=== PATIENT | male | born 1970 | race Caucasian/White ===

== ENCOUNTER 2016-10-31 18:05 | Emergency (ER) | payer OTHER ==
[2016-10-31] MEDS ORDERED: POVIDONE IODINE 10 % 15 ML UD TOP ONE (18:09)
[2016-10-31] MEDS ORDERED: LIDOCAINE 1% 10 ML VIAL INJ ONE (18:09)
--- NOTE | 2016-10-31 18:10 | ED.PDOC ---
History of Present Illness - General Chief Complaint: Skin/Abrasion/Tear Stated Complaint: laceration right hand Time Seen by Provider: 10/31/16 18:07 Source: patient - History of Present Illness Initial Comments: Joe Pike 45 y/o male stated accidentally injure-laceration right hand with broken glass. Timing/Duration: just prior to arrival Severity: moderate Location: hands Improving Factors: rest Worsening Factors: movement Associated Symptoms: denies symptoms Allergies/Adverse Reactions: Allergies NO KNOWN ALLERGY Allergy (Verified 10/31/16 18:31) Review of Systems - Review of Systems Constitutional: States: no symptoms reported EENTM: States: no symptoms reported Respiratory: States: no symptoms reported Cardiology: States: no symptoms reported Gastrointestinal/Abdominal: States: no symptoms reported Genitourinary: States: no symptoms reported Musculoskeletal: States: no symptoms reported Skin: States: no symptoms reported Past Medical History (General) - Vaccination History Hx Tetanus, Diphtheria Vaccination: Yes - 1 yr ago - Social History Hx Tobacco Use: No Hx Chewing Tobacco Use: No Family Medical History - Family History Mother Family History: Unknown Physical Exam - Physical Exam General Appearance: Alert, Comfortable, No apparent distress Eyes, Ears, Nose, Throat Exam: PERRL/EOMI, normal ENT inspection Neck: non-tender, full range of motion Cardiovascular/Chest: normal peripheral pulses, regular rate, rhythm, no murmur Respiratory: lungs clear, normal breath sounds Gastrointestinal/Abdominal: normal bowel sounds, non tender, soft, no organomegaly Back Exam: normal inspection Extremity: normal range of motion Skin Exam: other - laceration Skin Problem Location: other - right hand-2 cm laceration Skin Character: other - laceration Progress - Progress Progress: 10/31/16 18:54 Vital Signs - 8 hr 10/31/16 18:16 Temperature 96.9 F L Pulse Rate [ 104 H left brachial] Respiratory 20 Rate Blood Pressure 146/94 [LEFT BRACHIAL] O2 Sat by Pulse 97 Oximetry Procedures - Laceration/Wound Repair Right Hand Wound Length (cm): 2 Wound's Depth, Shape: linear Wound Explored: no foreign body removed Betadine Prep?: Yes Anesthesia: 1% Lidocaine Volume Anesthetic (cc's): 7 Wound Repaired With: sutures Suture Size/Type: 5:0, prolene Layer Closure?: No - continous suture done Sterile Dressing Applied?: Yes Departure - Departure Clinical Impression: Laceration of hand, right Qualifiers: Encounter type: initial encounter Foreign body presence: without foreign body Qualified Code(s): S61.411A - Laceration without foreign body of right hand, initial encounter Time of Disposition: 18:52 Disposition: Discharge to Home or Self Care Condition: Good Instructions: How to Care for a Laceration After Repair, DI for Laceration Repair Referrals: Dylon Blue MD [Primary Care Provider] - 1-2 Weeks Additional Instructions: REMOVAL OF SUTURES 11/11/1916 [facility] [email or web address]
[2016-10-31 18:25] VITALS: BP 146/94; TEMP 96.9; O2SAT 97
[2016-10-31] MEDS ORDERED: NEOMYCIN-BACITRACIN-POLYMYXIN 0.9 GM UD TOP ONE (18:36)
== END 2016-10-31 18:40 | disposition home or self-care (01) ==
LOC: ER 18:05
DX: S61.411A Laceration without foreign body of right hand, initial encounter (principal); W25.XXXA Contact with sharp glass, initial encounter; Y92.9 Unspecified place or not applicable

== ENCOUNTER → 2019-04-28 | Outpatient (CLI) | payer OTHER | LOC: LAB.O 08:41 | PROVIDERS: ATTEND Family Medicine | DX: Z00.00 Encounter for general adult medical examination without abnormal findings (principal); Z12.5 Encounter for screening for malignant neoplasm of prostate | CPT/HCPCS: 36415; 80048; 80061; 80076; 84403; 85025; G0103 ==

== ENCOUNTER → 2020-03-28 | Outpatient (CLI) | payer BC | LOC: GMAJ 08:18 | PROVIDERS: ATTEND Family Medicine | DX: Z79.899 Other long term (current) drug therapy (principal); Z12.5 Encounter for screening for malignant neoplasm of prostate; R53.83 Other fatigue ==